=== PATIENT | male | born 1990 | race Two or more races ===

== ENCOUNTER 2024-02-10 08:43 | Emergency (ER) | payer MEDICAID, OTHER ==
[~2024-02-10] VITALS: Ht 180.3 cm; Wt 118.9 kg
[~2024-02-10 08:43] MED LIST: METH4PAK PO; TRIA0.1O TOP
[2024-02-10 09:57] VITALS: TEMP 99.4
[2024-02-10] MEDS: MORPHINE SULFATE 4 MG/ML SYR/VIAL IM ONE (10:15)
[2024-02-10] MEDS ORDERED: BACI-5 EX (11:05)
[2024-02-10] MEDS ORDERED: NAP500T PO (11:05)
[2024-02-10] MEDS: NEOMYCIN-BACITRACIN-POLYM UNITDOSE PKG TOP OINT TOP ONE (11:25)
[2024-02-10 11:33] VITALS: BP 124/84; PULSE 93; RESP 18; O2SAT 100
== END 2024-02-10 11:35 | disposition home or self-care (01) ==
LOC: ER 08:43
DX: S60.512A Abrasion of left hand, initial encounter (principal); S60.511A Abrasion of right hand, initial encounter; M25.551 Pain in right hip; Z79.899 Other long term (current) drug therapy; V89.9XXA Person injured in unspecified vehicle accident, initial encounter; Y93.89 Activity, other specified; Y92.89 Other specified places as the place of occurrence of the external cause; Y99.8 Other external cause status
CPT/HCPCS: 73130; 73502; 96372; 99284; J2270

== ENCOUNTER 2024-02-25 10:04 | Emergency (ER) | payer MEDICAID, OTHER ==
[~2024-02-25] VITALS: Ht 180.3 cm; Wt 120.5 kg
[~2024-02-25 10:04] MED LIST changes: +BACI-5 EX; +NAP500T PO
[2024-02-25 10:56] VITALS: BP 132/92; PULSE 89; RESP 16; TEMP 98.2; O2SAT 97
[2024-02-25] MEDS ORDERED: IBUP-1456 PO (10:58)
[2024-02-25] MEDS ORDERED: CEPH500C PO (10:58)
== END 2024-02-25 11:03 | disposition home or self-care (01) ==
LOC: ER 10:04
DX: S40.812D Abrasion of left upper arm, subsequent encounter (principal); S40.811D Abrasion of right upper arm, subsequent encounter; E11.9 Type 2 diabetes mellitus without complications; V29.99XD Rider (driver) (passenger) of other motorcycle injured in unspecified traffic accident, subsequent encounter